=== PATIENT | female | born 1955 | race Caucasian/White ===

== ENCOUNTER 2018-03-16 13:28 | Emergency (ER) | payer OTHER ==
--- NOTE | 2018-03-16 13:44 | EDPHY ---
HPI/HX/ROS/PE/MDM Narrative: CHIEF COMPLAINT: Lump on lower left leg HPI: This patient is a healthy 62 year old female. Has noted lump on her lower left leg with surrounding bruising. Painful to touch. No chest pain, shortness of breath. No history of clotting. Endorses frequent recent air travel. Lives in [place]. Here visiting family. She underwent treatment of multiple "sunspots" with liquid nitrogen by [employer] a few days ago. REVIEW OF SYSTEMS: A comprehensive 10 system review of systems is otherwise negative aside from elements mentioned in the history of present illness and medical decision making. PMH: None significant. SOCIAL HISTORY:Works for [employer]. Denies drug abuse. PHYSICAL EXAM: General:Patient is alert, in no acute distress. ENT:Eyes are normal to inspection. ENT inspection normal. Neck: Normal inspection. Full range of motion. Respiratory:No respiratory distress. Breath sounds normal bilaterally. Cardiovascular: Regular rate and rhythm. Strong peripheral pulses. Normal cap refill. Skin: Normal color. No rash. Warm and dry. Extremities: Small area of ecchymosis over lateral tibia around midway between the knee and ankle. This appears to correspond to an area of liquid nitrogen application. No cellultis. Normal appearance. Full range of motion. No calf tenderness or swelling. Neuro: Oriented x3. Normal motor function. Normal sensory function. ED Course: Patient would like to proceed with US LLE to r/o DVT. US read by Dr. Miles as negative for DVT. On re-evaluation, patient comfortable with plan for discharge. - Data Points Imaging Results: Imaging Impressions Extremity Venous Study 03/16/18 13:46 Impression: No deep venous thrombosis left leg. Results called to Dr. Quiroga at 2:39 PM. General Time Seen by Provider: 03/16/18 13:38 Initial Vital Signs: Initial Vital Signs Temperature (C) 37.1 C 03/16/18 13:31 Heart Rate 66 03/16/18 13:31 Respiratory Rate 16 03/16/18 13:31 Blood Pressure 135/94 H 03/16/18 13:31 O2 Sat (%) 95 03/16/18 13:31 O2 Delivery Mode Room Air Allergies/Adverse Reactions: Sulfa (Sulfonamide Antibiotics) Allergy (Verified 03/16/18 13:34) Home Medications: Medication Instructions Recorded Aspirin 81mg (*) 03/16/18 Departure - Departure Disposition: Home, Routine, Self-Care Clinical Impression: Contusion of leg Condition: Good Instructions: Contusion in Adults (ED) Additional Instructions: Return to the emergency department for chest pain, shortness of breath or worsening bruising. Referrals: JOHN MULTANI [Other] - As per Instructions Report Scribed for: Raheel Quiroga Report Scribed by: Mira Duffy Date of Report: 03/16/18 Time of Report: 14:13 Physician Review and Approval Statement: Portions of this note were transcribed by an ED scribe. I personally performed the history, physical exam, and medical decision making; and confirm the accuracy of the information in the transcribed note.
[2018-03-16 14:58] VITALS: BP 126/70
== END 2018-03-16 14:58 | disposition home or self-care (01) ==
DX: M79.81 Nontraumatic hematoma of soft tissue (principal)